=== PATIENT | male | born 1980 | race African-American/Black ===

== ENCOUNTER → 2018-08-31 | Outpatient (CLI) | payer BC ==
--- NOTE | 2018-08-31 11:21 | PCVCIMAG ---
APPROVED REPORT Study performed: 08/31/2018 10:05:24 Exam: Stress Echocardiogram Indication: Chest pain, dm, palpitations, dyspnea Patient Location: Echo lab Stress Nurse: Leni Adame RN Ht: 5 ft 10 in HR: 83 bpm BP: 124/92 mmHg Rhythm: NSR Procedure The patient underwent an Exercise Stress Test using the Pollo Protocol. Blood pressure, heart rate, and EKG were monitored. An Echocardiogram was performed by event crew technician in four stages in quad fashion. At peak stress, four selected images were obtained and placed side by side with resting images for comparison. Stress Test Details Stress Test: Exercise stress testing was performed using a Pollo protocol. HR Resting HR: 83 bpmMax Heart Rate (APMHR): 175 bpm Max HR Achieved: 153 bpmTarget HR (85% APMHR): 148 bpm % of APMHR: 87 Recovery HR: 97 bpm HR response to stress: Normal HR response to stress BP Resting BP: 124/92 mmHg Max BP: 200/86 mmHg Recovery BP: 158/86 mmHg BP response to stress: Normal blood pressure response to stress. ECG Resting ECG: Sinus Rhythm w/ PACs Stress ECG: Sinus Rhythm ST Change: Normal Maximum ST Deviation: -.7 mm Arrhythmia: PACs Recovery ECG: Sinus Rhythm w/ PACs Recovery ST Change: Normal Recovery Arrhythmia: None Clinical Reason for Termination: Maximal effort, Dyspnea Stress Symptoms: Dyspnea Exercise duration: 11 min 12 sec Highest Stage Achieved: Stage 4: 4.2 mph at 16% grade. Exercise capacity: 13.7 METs Overall Exercise Capacity for Age: Normal Scale: Sedentary Angina Score: None Stress ECG Conclusion Romero Treadmill Score is 14.5 which is Low risk. Pre-Stress Echo The resting Echocardiogram showed normal left ventricular contractility with an estimated Ejection Fraction of about >55%. Normal wall motion in all segments on baseline images. Post-Stress Echo The stress Echocardiogram showed normal left ventricular contractility with an estimated Ejection Fraction of about 65%. Normal augmentation of wall motion in all segments on post stress images. Clinical No clinical or ECG evidence for ischemia. Conclusion Clinical Response: Non-ischemic Exercise Capacity: Average Stress ECG Response: Non-ischemic Stress Echo Images: Non-ischemic The left ventricle is normal in size and wall thickness in both the rest and stress images. Other Information Study Quality: Adequate <Conclusion> The left ventricle is normal in size and wall thickness in both the rest and stress images.
== END | disposition home or self-care (01) ==
LOC: EDBD → PCVCIMAG 10:01
PROVIDERS: ATTEND Internal Medicine Cardiovascular Disease
DX: R07.9 Chest pain, unspecified (principal); E11.9 Type 2 diabetes mellitus without complications; R00.2 Palpitations; R06.00 Dyspnea, unspecified
CPT/HCPCS: 93325; 93351

== ENCOUNTER → 2019-03-29 | Outpatient (CLI) | payer BC ==
--- NOTE | 2019-03-29 12:57 | PCVCIMAG ---
EXAM: BILATERAL RENAL ULTRASOUND AND BILATERAL RENAL DUPLEX INDICATION: Hypertension FINDINGS: Right kidney: Length measures 12.4 cm. No hydronephrosis or extensive renal scarring. Right renal duplex: Adequate technical quality. No sonographic evidence of renal artery stenosis. The aortic to renal artery ratio is 1.2. The renal vein is patent. Left kidney: Length measures 11.5 cm. No hydronephrosis or extensive renal scarring. Left renal duplex: Adequate technical quality. No sonographic evidence of renal artery stenosis. The aortic to renal artery ratio is 1.2. The renal vein is patent. Bladder: No obvious abnormalities. IMPRESSION: No significant renal artery stenosis. No hydronephrosis bilaterally. LOC:[id number]
== END | disposition home or self-care (01) ==
LOC: PCVCIMAG 10:02
PROVIDERS: ATTEND Internal Medicine Cardiovascular Disease
DX: I10 Essential (primary) hypertension (principal); E78.5 Hyperlipidemia, unspecified; E11.9 Type 2 diabetes mellitus without complications; E66.9 Obesity, unspecified; Z82.3 Family history of stroke; Z82.49 Family history of ischemic heart disease and other diseases of the circulatory system; Z72.89 Other problems related to lifestyle; Z88.8 Allergy status to other drugs, medicaments and biological substances; Z79.899 Other long term (current) drug therapy
CPT/HCPCS: 76770; 93975